=== PATIENT | male | born 1965 | race Caucasian/White ===

== ENCOUNTER 2021-03-06 04:21 | Day surgery (SDC) | payer OTHER ==
[2021-03-05 11:38] VITALS: BMI 28.5
[~2021-03-06 04:21] MED LIST: DEXAMETHASONE SOD PHOSPHATE 10 MG/1 ML VIAL IVPUSH ONE; IOHEXOL 180 MG/1 ML ML IJ ONE; LIDOCAINE HCL 1% PRESERVATIVE FREE - 30ML VIAL IJ ONE
[2021-03-06] MEDS ORDERED: DEXAMETHASONE SOD PHOSPHATE 10 MG/1 ML VIAL ONE (07:31)
[2021-03-06] MEDS ORDERED: LIDOCAINE HCL/PF 1% SDV 5ML VIAL ONE (07:31)
[2021-03-06] MEDS ORDERED: LIDOCAINE HCL 1% PRESERVATIVE FREE - 30ML VIAL IJ ONE ×2 (11:05→11:06)
[2021-03-06] MEDS ORDERED: IOHEXOL 180 MG/1 ML ML IJ ONE (11:05)
[2021-03-06] MEDS ORDERED: DEXAMETHASONE SOD PHOSPHATE 10 MG/1 ML VIAL IVPUSH ONE (11:06)
[2021-03-06 11:37] VITALS: BP 147/89; PULSE 73; TEMP 98.9
== END 2021-03-06 11:30 | disposition home or self-care (01) ==
LOC: JASU-SURG 04:21
PROVIDERS: ATTEND Pain Medicine Pain Medicine
PROC: 3E0R33Z Introduction of Anti-inflammatory into Spinal Canal, Percutaneous Approach (ICD-10-PCS; 2021-03-06)
PROC: 3E0R3BZ Introduction of Anesthetic Agent into Spinal Canal, Percutaneous Approach (ICD-10-PCS; principal; 2021-03-06 10:30)
DX: M48.061 Spinal stenosis, lumbar region without neurogenic claudication (principal); M54.16 Radiculopathy, lumbar region
CPT/HCPCS: 76000-TC-FY; J1100

== ENCOUNTER 2021-05-04 08:07 | Day surgery (SDC) | payer OTHER ==
[2021-04-29 17:02] VITALS: BMI 29.5
[~2021-05-04 08:07] MED LIST changes: +BUPIVICAINE 0.25%/MORPH PF/KETOROLAC - 51ML DISP.SYRINGE IA ONE; +CEFAZOLIN 2 GM in DEXTROSE 5%-WATER - 50 ML IVPB ONE; -DEXAMETHASONE SOD PHOSPHATE 10 MG/1 ML VIAL IVPUSH ONE; -IOHEXOL 180 MG/1 ML ML IJ ONE; -LIDOCAINE HCL 1% PRESERVATIVE FREE - 30ML VIAL IJ ONE; +TRANEXAMIC ACID 1000 MG/10 ML VIAL IVPUSH ONE; +VANCOMYCIN 1,000 MG VIAL (RESTRICTED TO ID ONLY) IVPB ONE
[2021-05-04] MEDS ORDERED: ONDANSETRON 4 MG/2 ML VIAL ONE (08:13)
[2021-05-04] MEDS ORDERED: PROPOFOL 20 ML ONE ×5 (08:13→12:33)
[2021-05-04] MEDS ORDERED: ceFAZolin SODIUM 1 GM VIAL ONE ×2 (08:13→18:26)
[2021-05-04] MEDS ORDERED: TRANEXAMIC ACID 1000 MG/10 ML VIAL ONE (08:13)
[2021-05-04] MEDS ORDERED: DEXAMETHASONE SOD PHOSPHATE 4 MG/1 ML VIAL ONE (08:13)
[2021-05-04] MEDS ORDERED: BUPIVACAINE HCL 50 ML ONE (08:31)
[2021-05-04] MEDS ORDERED: VANCOMYCIN 1,000 MG VIAL (RESTRICTED TO ID ONLY) ONE ×2 (09:21→10:33)
[2021-05-04] MEDS ORDERED: MIDAZOLAM HCL 2 MG/2 ML SINGLE DOSE VIAL ONE (09:37)
[2021-05-04] MEDS ORDERED: BUPIVACAINE HCL/PF 0.5% (5 MG/ML) 30 ML VIAL IJ ONE (09:37)
[2021-05-04] MEDS ORDERED: DEXAMETHASONE SOD PHOSPHATE 10 MG/1 ML VIAL ONE (09:37)
[2021-05-04] MEDS ORDERED: BUPIVICAINE 0.25%/MORPH PF/KETOROLAC - 51ML DISP.SYRINGE IA ONE ×2 (11:59→12:48)
[2021-05-04] MEDS ORDERED: VANCOMYCIN 1,000 MG VIAL (RESTRICTED TO ID ONLY) IVPB ONE (12:35)
[2021-05-04] MEDS ORDERED: ONDANSETRON 4 MG/2 ML VIAL IVPUSH PRN ×2 (12:46→13:48)
[2021-05-04] MEDS ORDERED: MAG HYDROX/AL HYDROX/SIMETH 30 ML UNIT-DOSE CUP PO PRN (12:46)
[2021-05-04] MEDS ORDERED: MAGNESIUM HYDROX 2400MG/30ML ORAL SUSPENSION 30 ML CUP PO PRN (12:46)
[2021-05-04] MEDS ORDERED: LACTATED RINGERS SOLUTION 1,000 ML IV SCH ×2 (13:00→14:00)
[2021-05-04] MEDS ORDERED: ACETAMINOPHEN 1000 MG/100 ML BAG IVPB ONE (13:48)
[2021-05-04] MEDS ORDERED: oxyCODONE HCL 5 MG TABLET PO PRN ×2 (13:48)
[2021-05-04] MEDS ORDERED: PROMETHAZINE HCL 25 MG/1 ML VIAL IVPUSH PRN (13:48)
[2021-05-04] MEDS: KETOROLAC TROMETHAMINE 30 MG/1 ML VIAL IVPUSH SCH ×2 (14:12→20:01)
[2021-05-04] MEDS ORDERED: DEXTROSE 5%-WATER - 50 ML IVPB ONE (18:27)
[2021-05-04] MEDS: CEFAZOLIN 2 GM in DEXTROSE 5%-WATER - 50 ML IVPB SCH (18:37)
[2021-05-04] MEDS: oxyCODONE HCL 10 MG SUSTAINED ACTING TABLET PO SCH (21:18)
[2021-05-04] MEDS: GABAPENTIN 300 MG CAPSULE PO SCH (21:18)
[2021-05-04] MEDS: SENNOSIDES/DOCUSATE COMBO (SENNA PLUS) TABLET (UD) PO SCH (21:18)
[2021-05-05] MEDS ORDERED: ceFAZolin SODIUM 1 GM VIAL ONE ×2 (03:02→10:32)
[2021-05-05] MEDS ORDERED: DEXTROSE 5%-WATER - 50 ML IVPB ONE ×2 (03:02→10:32)
[2021-05-05] MEDS: CEFAZOLIN 2 GM in DEXTROSE 5%-WATER - 50 ML IVPB SCH ×2 (03:14→10:35)
[2021-05-05] MEDS: ACETAMINOPHEN 500 MG TABLET (FP) PO SCH ×3 (06:31→21:35)
[2021-05-05 08:05] LABS: CALCIUM 8.9 mg/dl (8.5-10); CREATININE 1.2 mg/dl (0.55-1.3)
[2021-05-05] MEDS: GABAPENTIN 300 MG CAPSULE PO SCH ×2 (09:33→21:33)
[2021-05-05] MEDS: ASPIRIN 325 MG TABLET PO SCH ×2 (09:33→21:33)
[2021-05-05] MEDS: PANTOPRAZOLE 40 MG TABLET PO SCH (09:34)
[2021-05-05] MEDS: oxyCODONE HCL 10 MG SUSTAINED ACTING TABLET PO SCH ×2 (09:34→21:34)
[2021-05-05] MEDS: SENNOSIDES/DOCUSATE COMBO (SENNA PLUS) TABLET (UD) PO SCH ×2 (09:34→21:34)
[2021-05-05] MEDS: MULTIVITAMINS (DAILY MVI) TABLET (FP) PO SCH (09:37)
[2021-05-05 10:04] LABS: HEMATOCRIT 40.1 % (35.4-49); HEMOGLOBIN 13.8 GM/dL (11.7-16.9); MCH 32.2 pg (25.7-33.7); MCHC 34.4 g/dl (32.0-35.9); MEAN CELL VOLUME 93.5 fl (80-96); MEAN PLT VOLUME 8.3 fl (7.5-11.1); PLATELET COUNT 207 10^3/uL (134-434); RBC 4.28 M/mm3 (4.00-5.60); RDW 13.3 % (11.9-15.9); WHITE BLOOD COUNT 12.7 K/mm3 (4.0-10.0)
[2021-05-06] MEDS: ACETAMINOPHEN 500 MG TABLET (FP) PO SCH (06:41)
[2021-05-06 06:44] VITALS: BP 146/82; PULSE 73; TEMP 97.8
[2021-05-06] MEDS: MULTIVITAMINS (DAILY MVI) TABLET (FP) PO SCH (09:15)
[2021-05-06] MEDS: PANTOPRAZOLE 40 MG TABLET PO SCH (09:15)
[2021-05-06] MEDS: ASPIRIN 325 MG TABLET PO SCH (09:15)
[2021-05-06] MEDS: GABAPENTIN 300 MG CAPSULE PO SCH (09:16)
[2021-05-06] MEDS: oxyCODONE HCL 10 MG SUSTAINED ACTING TABLET PO SCH (09:16)
[2021-05-06] MEDS: SENNOSIDES/DOCUSATE COMBO (SENNA PLUS) TABLET (UD) PO SCH (09:16)
[2021-05-06 15:26] LABS: HEMATOCRIT 41.1 % (35.4-49); HEMOGLOBIN 13.8 GM/dL (11.7-16.9); MCH 31.4 pg (25.7-33.7); MCHC 33.6 g/dl (32.0-35.9); MEAN CELL VOLUME 93.4 fl (80-96); MEAN PLT VOLUME 8.7 fl (7.5-11.1); PLATELET COUNT 208 10^3/uL (134-434); RDW 13.5 % (11.9-15.9); WHITE BLOOD COUNT 9.7 K/mm3 (4.0-10.0)
== END 2021-05-06 12:45 | disposition home or self-care (01) ==
LOC: FASU 08:07 → SUATTDRO 08:07 → FM/S 15:42 → FASU 05-06 12:45
PROVIDERS: ATTEND Nurse Practitioner Acute Care
PROC: 8E0YXBZ Computer Assisted Procedure of Lower Extremity (ICD-10-PCS; 2021-05-04)
PROC: 8E0W0CZ Robotic Assisted Procedure of Trunk Region, Open Approach (ICD-10-PCS; 2021-05-04)
PROC: 0SR90J9 Replacement of Right Hip Joint with Synthetic Substitute, Cemented, Open Approach (ICD-10-PCS; principal; 2021-05-04 10:14)
DX: M16.11 Unilateral primary osteoarthritis, right hip (principal)
CPT/HCPCS: 20985; 27130; C1776; S2900; 36415; 73502-TC-RT-FY; 80048; 85027; 88305-TC; 88311-TC; 94760; 97010-GP; 97116-GP; J1100

== ENCOUNTER 2021-05-09 12:07 | Emergency (ER) | payer OTHER ==
[2021-05-09 12:50] LABS: INR 1.04 (0.83-1.09)
[2021-05-09 12:52] LABS: ACTIVATED PTT 29.8 SECONDS (25.2-36.5)
[2021-05-09 12:55] LABS: ALBUMIN 3.1 g/dl (3.4-5.0); BILIRUBIN,TOTAL 0.6 mg/dl (0.2-1); CALCIUM 8.9 mg/dl (8.5-10); CREATININE 0.8 mg/dl (0.55-1.3); TOT PROT 6.1 g/dl (6.4-8.2)
[2021-05-09 13:10] VITALS: BP 138/75; PULSE 78; TEMP 98.5; BMI 28.5
[2021-05-09] MEDS ORDERED: oxyCODONE HCL 5 MG TABLET PO ONE (14:20)
[2021-05-09] MEDS ORDERED: oxyCODONE HCL 5 MG TABLET ONE (14:22)
[2021-05-09 15:27] LABS: BASO % 0.7 % (0-2.0); EOS % 0.9 % (0-4.5); HEMATOCRIT 37.6 % (35.4-49); HEMOGLOBIN 12.6 GM/dL (11.7-16.9); LYMPH % 17.8 % (8-40); MCH 31.2 pg (25.7-33.7); MCHC 33.5 g/dl (32.0-35.9); MEAN CELL VOLUME 93.3 fl (80-96); MEAN PLT VOLUME 8.3 fl (7.5-11.1); MONO % 6.7 % (3.8-10.2); NEUT % 73.9 % (42.8-82.8); PLATELET COUNT 269 10^3/uL (134-434); RBC 4.03 M/mm3 (4.00-5.60); RDW 12.8 % (11.9-15.9); WHITE BLOOD COUNT 8.6 K/mm3 (4.0-10.0)
== END 2021-05-09 15:47 | disposition home or self-care (01) ==
LOC: FER 12:07
DX: M79.89 Other specified soft tissue disorders (principal)
CPT/HCPCS: 36415; 80053; 85025; 85610; 85730; 93971-TC; 99284-25

== ENCOUNTER 2021-07-03 04:16 | Day surgery (SDC) | payer OTHER ==
[2021-07-01 17:39] VITALS: BMI 29.9
[2021-07-03] MEDS ORDERED: LIDOCAINE HCL/PF 1% SDV 5ML VIAL ONE (07:22)
[2021-07-03] MEDS ORDERED: TRIAMCINOLONE ACET 40MG/1ML VIAL ONE (07:22)
[2021-07-03] MEDS ORDERED: BUPIVACAINE HCL/PF 0.5% (5MG/ML) 10 ML VIAL ONE (07:22)
[2021-07-03] MEDS ORDERED: BUPIVACAINE HCL/PF 0.25% (2.5MG/ML) 10 ML VIAL ONE (09:15)
[2021-07-03] MEDS ORDERED: IOHEXOL 180 MG/1 ML ML IJ ONE (09:54)
[2021-07-03] MEDS ORDERED: TRIAMCINOLONE ACETONIDE 40 MG/ML 10 ML VIAL IJ ONE (09:54)
[2021-07-03] MEDS ORDERED: LIDOCAINE HCL 1% PRESERVATIVE FREE - 30ML VIAL IJ ONE (09:54)
[2021-07-03] MEDS ORDERED: BUPIVACAINE HCL/PF 0.25% (2.5MG/ML) 10 ML VIAL IJ ONE (09:54)
[2021-07-03 11:29] VITALS: BP 142/85; PULSE 75; TEMP 97.8
== END 2021-07-03 10:10 | disposition home or self-care (01) ==
LOC: JASU-SURG 04:16
PROVIDERS: ATTEND Pain Medicine Pain Medicine
PROC: 3E0U33Z Introduction of Anti-inflammatory into Joints, Percutaneous Approach (ICD-10-PCS; 2021-07-03)
PROC: 3E0U3BZ Introduction of Anesthetic Agent into Joints, Percutaneous Approach (ICD-10-PCS; principal; 2021-07-03 11:00)
DX: M16.12 Unilateral primary osteoarthritis, left hip (principal)
CPT/HCPCS: 76000-TC-FY

== ENCOUNTER 2021-11-09 06:07 | Inpatient (IN) | payer OTHER ==
[2021-11-09 07:05] VITALS: BMI 31.4
[2021-11-09] MEDS ORDERED: VANCOMYCIN 1,000 MG VIAL (RESTRICTED TO ID ONLY) ONE ×2 (07:12→08:55)
[2021-11-09] MEDS ORDERED: MIDAZOLAM HCL 2 MG/2 ML SINGLE DOSE VIAL ONE ×4 (07:36→09:59)
[2021-11-09] MEDS ORDERED: DEXAMETHASONE SOD PHOSPHATE 10 MG/1 ML VIAL ONE (07:36)
[2021-11-09] MEDS ORDERED: ROPIVACAINE HCL 0.5% 30ML VIAL ONE (07:36)
[2021-11-09] MEDS ORDERED: PROPOFOL 20 ML ONE ×4 (07:45→10:21)
[2021-11-09] MEDS ORDERED: BUPIVACAINE HCL/PF 0.5% (5MG/ML) 10 ML VIAL ONE (07:46)
[2021-11-09] MEDS ORDERED: DEXAMETHASONE SOD PHOSPHATE 4 MG/1 ML VIAL ONE (07:59)
[2021-11-09] MEDS ORDERED: ceFAZolin SODIUM 1 GM VIAL ONE (07:59)
[2021-11-09] MEDS ORDERED: ONDANSETRON 4 MG/2 ML VIAL ONE (07:59)
[2021-11-09] MEDS ORDERED: TRANEXAMIC ACID 1000 MG/10 ML VIAL ONE (07:59)
[2021-11-09] MEDS ORDERED: CEFAZOLIN 2 GM in DEXTROSE 5%-WATER - 50 ML IVPB ONE (08:00)
[2021-11-09] MEDS ORDERED: TRANEXAMIC ACID 1000 MG/10 ML VIAL IVPUSH ONE (08:00)
[2021-11-09] MEDS ORDERED: BUPIVICAINE 0.25%/MORPH PF/KETOROLAC - 51ML DISP.SYRINGE IA ONE (09:55)
[2021-11-09] MEDS ORDERED: MAG HYDROX/AL HYDROX/SIMETH 30 ML UNIT-DOSE CUP PO PRN (10:40)
[2021-11-09] MEDS ORDERED: ONDANSETRON 4 MG/2 ML VIAL IVPUSH PRN ×2 (10:40→11:10)
[2021-11-09] MEDS ORDERED: MAGNESIUM HYDROX 2400MG/30ML ORAL SUSPENSION 30 ML CUP PO PRN (10:40)
[2021-11-09] MEDS ORDERED: LACTATED RINGERS SOLUTION 1,000 ML IV SCH ×2 (10:45→11:15)
[2021-11-09] MEDS ORDERED: oxyCODONE HCL 5 MG TABLET PO PRN (11:10)
[2021-11-09] MEDS ORDERED: ACETAMINOPHEN 1000 MG/100 ML BAG IVPB ONE (11:10)
[2021-11-09] MEDS ORDERED: ACETAMINOPHEN INJECTION 100 ML IVPB ONE (11:54)
[2021-11-09] MEDS: oxyCODONE HCL 5 MG TABLET PO PRN ×2 (16:39→20:58)
[2021-11-09] MEDS: CEFAZOLIN SODIUM 2 GM in DEXTROSE 5%-WATER 100 ML IVPB SCH ×2 (16:40→18:31)
[2021-11-09] MEDS: ACETAMINOPHEN 500 MG TABLET (FP) PO SCH (18:29)
[2021-11-09] MEDS: GABAPENTIN 300 MG CAPSULE PO SCH (20:59)
[2021-11-09] MEDS: oxyCODONE HCL 10 MG SUSTAINED ACTING TABLET PO SCH (20:59)
[2021-11-09] MEDS: SENNOSIDES/DOCUSATE COMBO (SENNA PLUS) TABLET (UD) PO SCH (20:59)
[2021-11-10] MEDS: ACETAMINOPHEN 500 MG TABLET (FP) PO SCH ×3 (01:00→12:16)
[2021-11-10] MEDS: CEFAZOLIN SODIUM 2 GM in DEXTROSE 5%-WATER 100 ML IVPB SCH (02:28)
[2021-11-10] MEDS: oxyCODONE HCL 5 MG TABLET PO PRN ×2 (03:28→09:09)
[2021-11-10 08:12] LABS: HEMOGLOBIN 12.9 G/dL (11.7-16.9); MCH 32.8 pg (25.7-33.7); MCHC 35.8 g/dl (32.0-35.9); MEAN CELL VOLUME 91.7 fl (80-96); MEAN PLT VOLUME 8.2 fl (7.5-11.1); PLATELET COUNT 224.3 10^3/uL (134-434); RBC 3.93 10^6/uL (4.00-5.60); RDW 13.5 % (11.9-15.9)
[2021-11-10 08:17] LABS: ALBUMIN 3.2 g/dl (3.4-5.0); BILIRUBIN,TOTAL 0.5 mg/dl (0.2-1); CALCIUM 8.7 mg/dl (8.5-10); CREATININE 0.9 mg/dl (0.55-1.3); TOT PROT 5.7 g/dl (6.4-8.2)
[2021-11-10 08:37] VITALS: RESP 20
[2021-11-10] MEDS: GABAPENTIN 300 MG CAPSULE PO SCH (09:08)
[2021-11-10] MEDS: SENNOSIDES/DOCUSATE COMBO (SENNA PLUS) TABLET (UD) PO SCH (09:09)
[2021-11-10] MEDS: oxyCODONE HCL 10 MG SUSTAINED ACTING TABLET PO SCH (09:10)
[2021-11-10 09:20] LABS: PLATELET ESTIMATE ADEQUATE
[2021-11-10] MEDS ORDERED: PANTOPRAZOLE 40 MG TABLET PO SCH (10:00)
[2021-11-10] MEDS ORDERED: MULTIVITAMINS (DAILY MVI) TABLET (FP) PO SCH (10:00)
[2021-11-10] MEDS ORDERED: ASPIRIN 325 MG TABLET PO SCH (10:00)
[2021-11-10 14:19] VITALS: BP 143/77; PULSE 81; TEMP 98.6
== END 2021-11-10 15:53 | disposition home or self-care (01) | DRG 301 ==
LOC: FM/S 06:07 → EDSTATUS 08:00 → FM/S 12:13
PROVIDERS: ADMIT Orthopaedic Surgery Sports Medicine; ATTEND Orthopaedic Surgery Sports Medicine
PROC: 0SRB0JZ Replacement of Left Hip Joint with Synthetic Substitute, Open Approach (ICD-10-PCS; principal; 2021-11-09 08:52)
DX: M16.12 Unilateral primary osteoarthritis, left hip (principal); I10 Essential (primary) hypertension; E78.5 Hyperlipidemia, unspecified; G62.9 Polyneuropathy, unspecified; E66.9 Obesity, unspecified; Z68.31 Body mass index [BMI] 31.0-31.9, adult; Z79.82 Long term (current) use of aspirin
CPT/HCPCS: 36415; 73502-TC-LT-FY; 80048; 80053; 85027; 88305-TC; 88311-TC; 94760; 97010-GP; 97116-GP; 97162-GP; J1100